=== PATIENT | male | born 1985 | race Caucasian/White ===

== ENCOUNTER 2021-07-06 17:22 | Emergency (ER) | payer OTHER ==
[2021-07-06 19:02] VITALS: BP 143/88; PULSE 78; RESP 16; TEMP 98.2
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
--- NOTE | 2021-07-06 20:57 | XR ---
EXAMINATION TYPE: XR Hip Complete LT DATE OF EXAM: 07/06/2021 COMPARISON: NONE HISTORY: Pain TECHNIQUE: 2 views FINDINGS: There is no evidence of fracture nor dislocation. Proximal femur is intact. Acetabulum appe ars normal. Sacroiliac joint is intact. IMPRESSION: Negative left hip exam.
--- NOTE | 2021-07-06 21:00 | XR ---
EXAMINATION TYPE: XR elbow complete LT DATE OF EXAM: 07/06/2021 COMPARISON: NONE HISTORY: Pain TECHNIQUE: 3 views FINDINGS: There is no evidence of fracture nor dislocation. No sign of elbow joint effusion. Joint sp aces are normal. No pathologic calcifications. IMPRESSION: Negative left elbow exam.
--- NOTE | 2021-07-06 21:00 | XR ---
EXAMINATION TYPE: XR lumbar spine 2 or 3V DATE OF EXAM: 07/06/2021 COMPARISON: None HISTORY: Pain TECHNIQUE: 3 views FINDINGS: Lumbar vertebrae are normal alignment. Posterior elements are intact. There is no compressi on fracture. Sacroiliac joints not well seen. Disc spaces appear normal. IMPRESSION: Negative lumbar spine exam. No fracture
== END 2021-07-06 21:36 | disposition home or self-care (01) ==
LOC: EC 17:22
DX: S50.02XA Contusion of left elbow, initial encounter (principal); S70.02XA Contusion of left hip, initial encounter; F17.200 Nicotine dependence, unspecified, uncomplicated; Z88.0 Allergy status to penicillin; W01.0XXA Fall on same level from slipping, tripping and stumbling without subsequent striking against object, initial encounter
CPT/HCPCS: 72100; 73502; 99283